=== PATIENT | male | born 1965 | race Caucasian/White ===

== ENCOUNTER → 2023-03-31 | Outpatient (CLI) | payer BC ==
[2023-03-31 13:31] LABS: PROTHROMBIN TIME 21.4 SECONDS (9.0-12.0)
== END ==
LOC: LAB 12:39
DX: I81 Portal vein thrombosis (principal); K74.69 Other cirrhosis of liver

== ENCOUNTER → 2023-04-30 | Outpatient (CLI) | payer BC | LOC: RAD 08:59 | DX: K74.69 Other cirrhosis of liver (principal); R16.2 Hepatomegaly with splenomegaly, not elsewhere classified; K75.81 Nonalcoholic steatohepatitis (NASH); R93.5 Abnormal findings on diagnostic imaging of other abdominal regions, including retroperitoneum | CPT/HCPCS: Q9967 ==

== ENCOUNTER → 2023-10-29 | Outpatient (CLI) | payer BC ==
[2023-10-29 08:48] LABS: BASO # 0.02 K/mm3 (0.02-0.10); EOS # 0.15 K/mm3 (0.04-0.40); EOS % 2.9 % (0.0-4.0); HEMATOCRIT 41.7 % (42.0-52.0); HEMOGLOBIN 14.7 g/dL (13.5-18.0); LYMPH# 0.75 K/mm3 (1.50-4.00); MEAN CELL VOLUME 89 fl (78-100); MEAN CORPUSCULAR HEMOGLOBIN 31 pg (27-31); MEAN CORPUSCULAR HGB CONC 35 g/dL (33-37); MEAN PLATELET VOLUME 10.9 fl (7.4-10.4); MONO # 0.57 K/mm3 (0.20-0.80); NEU # 3.69 K/mm3 (1.40-6.50); PLATELET COUNT 79 K/mm3 (130-400); RED BLOOD COUNT 4.69 M/mm3 (4.20-5.60); RED CELL DISTRIBUTION WIDTH 13.3 % (11.5-14.5); WHITE BLOOD COUNT 5.2 K/mm3 (4.8-10.8)
[2023-10-29 08:56] LABS: ALBUMIN 3.9 g/dL (3.5-5.0); TOTAL BILIRUBIN 2.4 mg/dL (0.2-1.2); TOTAL PROTEIN 6.1 g/dL (6.4-8.3)
[2023-10-29 09:11] LABS: PROTHROMBIN TIME 10.8 SECONDS (9.0-12.0)
== END ==
LOC: LAB 08:15
PROVIDERS: Nurse Practitioner
DX: K74.69 Other cirrhosis of liver (principal)

== ENCOUNTER 2024-03-22 10:33 | Emergency (ER) | payer BC ==
[~2024-03-22] VITALS: Ht 175.3 cm; Wt 95.5 kg
[2024-03-22] MEDS ORDERED: FUROSEMIDE40 MG (10:54)
[2024-03-22] MEDS ORDERED: CARVEDILOL6.25 MG PO (10:54)
[2024-03-22] MEDS ORDERED: SPIRONOLACTONE100 MG PO (10:54)
[2024-03-22] MEDS ORDERED: ELIQUIS5 MG PO (10:54)
[2024-03-22 11:26] LABS: HEMATOCRIT 40.8 % (42.0-52.0); HEMOGLOBIN 14.1 g/dL (13.5-18.0); MEAN CELL VOLUME 90 fl (78-100); MEAN CORPUSCULAR HEMOGLOBIN 31 pg (27-31); MEAN CORPUSCULAR HGB CONC 35 g/dL (33-37); MEAN PLATELET VOLUME 10.9 fl (7.4-10.4); PLATELET COUNT 72 K/mm3 (130-400); RED BLOOD COUNT 4.52 M/mm3 (4.20-5.60); WHITE BLOOD COUNT 6.2 K/mm3 (4.8-10.8)
[2024-03-22] MEDS ORDERED: Iohexol 350 - 100 ML VIAL IV ONE (11:30)
[2024-03-22 11:33] LABS: ALBUMIN 3.7 g/dL (3.5-5.0); SODIUM 139 mmol/L (136-145)
[2024-03-22 11:36] LABS: GLUCOSE 97 mg/dL (75-110); TOTAL PROTEIN 6.5 g/dL (6.4-8.3)
[2024-03-22 11:37] LABS: CARBON DIOXIDE 24 mmol/L (22-29); TOTAL BILIRUBIN 3.2 mg/dL (0.2-1.2)
[2024-03-22 11:41] LABS: AST-SGOT 37 U/L (5-34)
[2024-03-22 11:42] LABS: ALT/SGPT 27 U/L (0-55)
[2024-03-22 11:49] LABS: TROPONIN-I < 0.030 ng/mL (0.00-0.033)
[2024-03-22 12:06] LABS: LYMPHOCYTE 8 % (20-51); MONOCYTE 9 % (3-10); NEUTROPHILS 80 % (42-75)
[2024-03-22 12:57] VITALS: BP 104/78
== END 2024-03-22 12:59 | disposition home or self-care (01) ==
LOC: ED 10:33
PROVIDERS: Physician Assistant
DX: J06.9 Acute upper respiratory infection, unspecified (principal); I74.8 Embolism and thrombosis of other arteries; Z79.01 Long term (current) use of anticoagulants
CPT/HCPCS: Q9967

== ENCOUNTER 2024-07-19 13:56 | Emergency (ER) | payer BC ==
[~2024-07-19] VITALS: Ht 175.3 cm; Wt 95.5 kg
[~2024-07-19 13:56] MED LIST: CARVEDILOL6.25 MG PO; ELIQUIS5 MG PO; FUROSEMIDE40 MG; SPIRONOLACTONE100 MG PO
[2024-07-19] MEDS ORDERED: NS 1,000 ML IV ONE (14:15)
[2024-07-19] MEDS ORDERED: Orphenadrine 60 MG/2ML AMP IV ONE (14:15)
[2024-07-19 14:28] LABS: HEMATOCRIT 42.9 % (42.0-52.0); HEMOGLOBIN 15.2 g/dL (13.5-18.0); MEAN CELL VOLUME 89 fl (78-100); MEAN CORPUSCULAR HEMOGLOBIN 32 pg (27-31); MEAN CORPUSCULAR HGB CONC 35 g/dL (33-37); MEAN PLATELET VOLUME 10.6 fl (7.4-10.4); PLATELET COUNT 73 K/mm3 (130-400); RED BLOOD COUNT 4.81 M/mm3 (4.20-5.60); RED CELL DISTRIBUTION WIDTH 13.4 % (11.5-14.5); WHITE BLOOD COUNT 9.3 K/mm3 (4.8-10.8)
[2024-07-19 14:36] LABS: CALCIUM 8.8 mg/dL (8.3-10.5)
[2024-07-19 14:37] LABS: TOTAL PROTEIN 6.6 g/dL (6.4-8.3)
[2024-07-19 14:39] LABS: TOTAL BILIRUBIN 3.5 mg/dL (0.2-1.2)
[2024-07-19 14:49] LABS: BAND 5 % (0-10); LYMPHOCYTE 3 % (20-51); MONOCYTE 4 % (3-10); NEUTROPHILS 87 % (42-75)
[2024-07-19] MEDS ORDERED: Ondansetron 4 MG/2 ML VIAL IV ONE (15:00)
[2024-07-19] MEDS ORDERED: Iohexol 300 - 100 ML VIAL IV ONE (15:24)
[2024-07-19] MEDS ORDERED: NORCO 325 MG-51 TA1 PO (16:00)
[2024-07-19] MEDS ORDERED: ZOFRAN ODT4 MG PO (16:00)
[2024-07-19] MEDS ORDERED: KETOROLAC10 MG PO (16:06)
[2024-07-19 16:14] VITALS: BP 127/66
[2024-07-19] MEDS ORDERED: Home Ondansetron ODT 4 MG #2 ODT/PACK PO ONE (16:15)
[2024-07-19] MEDS ORDERED: Home HYDROcodone/Acetaminophen 5/325 MG #4 TABS/PACK PO ONE (16:15)
== END 2024-07-19 16:15 | disposition home or self-care (01) ==
LOC: ED 13:56
PROVIDERS: Family Medicine
DX: K52.9 Noninfective gastroenteritis and colitis, unspecified (principal); M54.50 Low back pain, unspecified; M54.6 Pain in thoracic spine
CPT/HCPCS: J2360; J2405; J7030; Q9967

== ENCOUNTER → 2024-07-27 | Outpatient (CLI) | payer BC ==
[~2024-07-27] MED LIST changes: +KETOROLAC10 MG PO; +NORCO 325 MG-51 TA1 PO; +ZOFRAN ODT4 MG PO
[2024-07-27 10:38] LABS: ALBUMIN 3.5 g/dL (3.5-5.0)
[2024-07-27 10:40] LABS: CALCIUM 8.6 mg/dL (8.3-10.5)
[2024-07-27 10:41] LABS: TOTAL PROTEIN 5.8 g/dL (6.4-8.3)
[2024-07-27 10:43] LABS: TOTAL BILIRUBIN 1.9 mg/dL (0.2-1.2)
== END ==
LOC: LAB 10:04
PROVIDERS: Family Medicine
DX: Z01.89 Encounter for other specified special examinations (principal)